=== PATIENT | female | born 1955 | race Two or more races ===

== ENCOUNTER 2017-06-15 11:08 | Outpatient (CLI) | payer OTHER | END 2017-06-15 11:16 | disposition home or self-care (01) | LOC: RAD 501 11:08 | DX: M25.571 Pain in right ankle and joints of right foot (principal) ==

== ENCOUNTER 2019-05-09 07:53 | Outpatient (CLI) | payer OTHER | END 2019-05-09 08:03 | disposition home or self-care (01) | LOC: RAD 07:53 → MAMO-SONO 08:45 | DX: M25.512 Pain in left shoulder (principal) ==